=== PATIENT | male | born 1935 | race Caucasian/White ===

== ENCOUNTER 2016-11-30 09:52 | Emergency (ER) | payer OTHER ==
[2016-11-30 10:03] VITALS: TEMP 98.1
--- NOTE | 2016-11-30 10:07 | EDPHY ---
H & P Stated Complaint: Pain R TMJ area after chewing this morning Time Seen by Provider: 11/30/16 10:06 - Personal History Current Tetanus Diphtheria and Acellular Pertussis (TDAP): Yes - Medical/Surgical History Other PMH: osteoporosis. HTN - Social History Smoking Status: Former smoker Constitutional: Initial Vital Signs Temperature (C) 36.7 C 11/30/16 09:58 Heart Rate 54 L 11/30/16 09:58 Respiratory Rate 16 11/30/16 09:58 Blood Pressure 215/123 H 11/30/16 09:58 O2 Sat (%) 97 11/30/16 09:58 O2 Delivery Mode Room Air Allergies/Adverse Reactions: No Known Allergies Allergy (Verified 11/30/16 09:56) Home Medications: Medication Instructions Recorded Lisinopril [Zestril 20 mg (*)] 20 mg PO DAILY 09/06/12 amLODIPine BESYLATE [Norvasc 2.5 2.5 mg PO DAILY 09/06/12 mg (*)] Aspirin [Aspirin 325 mg (*)] 325 mg PO DAILY 11/30/16 Medical Decision Making ED Course/Re-evaluation: CHIEF COMPLAINT: Right TMJ pain HISTORY OF PRESENT ILLNESS: The patient is an 81 y/o male complaining of right TMJ pain onset suddenly while eating this morning. He says he was chewing and felt and heard a sudden snap in his right TMJ this morning. He continues to have soreness at the site that is aggravated by opening his mouth and biting down. His teeth feel like they are lining up normally. No other complaints. REVIEW OF SYSTEMS: A 10 point review of systems was performed and is negative with the exception of the elements mentioned in the history of present illness. PHYSICAL EXAM: HR, BP, O2 Sat, RR. Temp noted General Appearance: Alert, well hydrated, appropriate, and non-toxic appearing. Head: Atraumatic without scalp tenderness or obvious injury Eyes: Pupils equal, round, reactive to light and accommodation, EOMI, no trauma , no injection. Ears: Clear bilaterally, no perforation, normal landmarks Nose: Atraumatic, no rhinorrhea, clear. Throat: There is no erythema or exudates, no lesions, normal tonsils, mucus membranes moist. Neck: Supple, 2+ carotid upstroke, nontender, no lymphadenopathy. Respiratory: No retractions, no distress, no wheezes, and no accessory muscle use. Lungs are clear to auscultation bilaterally. Cardiovascular: Regular rate and rhythm, no murmurs, rubs, or gallops. Bilateral carotid, radial, dorsalis pedis, and posterior tibial pulses intact. Good capillary refill all extremities. Gastrointestinal: Abdomen is soft, nontender, non-distended, no masses, no rebound, no guarding, no peritoneal signs. Musculoskeletal: Normal active ROM of all extremities, atraumatic. Neurological: Alert, appropriate, and interactive. The patient has normal DTRs and non-focal cranial nerves, motor, sensory, and cerebellar exam. Skin: No rashes, good turgor, no nodules on palpation. Past medical history: Hypertension, osteoporosis Past surgical history: noncontributory Family history: noncontributory Social history: lives in [place] DIAGNOSTICS/PROCEDURES/CRITICAL CARE TIME: Study: Maxillofacial CT Indication: acute TMJ pain Results: CT scan of the face was obtained. The results of the study are negative. The study was read by the radiologist, Dr. Jamil. I viewed the images myself on the PACS system. DIFFERENTIAL DIAGNOSIS: The differential diagnosis for the patient's jaw pain included but was not limited to TMJ dislocation, TMJ sprain, jaw fracture, dental pain. MEDICAL DECISION MAKING: This is an 81 y/o male presenting with mild right TMJ pain secondary to chewing this morning. He describes a "snap" as he was chewing with sudden pain that has gradually improved. No other symptoms. Maxillofacial CT was negative. Likely a sprain of the TMJ. Referred to PCP for follow up. He is comfortable with this plan. Departure - Departure Disposition: Home, Routine, Self-Care Clinical Impression: Sprain of right temporomandibular joint Condition: Good Instructions: Mandibular Dislocation (ED) Additional Instructions: 1. Use Tylenol as directed on the packaging if needed for pain. 2. Follow up with your primary care provider for symptoms not improved over the next 2-3 days or for recurrence. 3. Return to the ED for severe pain, inability to eat, or other worsening of condition. Referrals: Gilles Snyder MD [Primary Care Provider] - As per Instructions Report Scribed for: Martínez Saldana Report Scribed by: Ondina Hummel Date of Report: 11/30/16 Time of Report: 10:20
--- NOTE | 2016-11-30 11:01 | CT ---
CT Maxillofacial Bones with Multiplanar and 3D Reconstructions at 1028 hours History: Right jaw pain post eating. [place] crack. Technique: Noncontrast axial computed tomographic images of the facial bones at 1.25 mm slice thickne with multiplanar and 3D reconstructions. Multiplanar reconstructions including 3D reconstructions performed and evaluated on [employer] workstation in order to better evaluate the facial bones for fractu re. Dose reduction techniques were utilized. Findings: Mandible appears intact without evidence of fracture or dislocation. Bilateral mandibular c ondyles and neck regions appear intact without dislocation or fractures. No destructive osseous lesio ns. Left sphenoid sinus demonstrates a 1.2 cm polyp or mucous retention cyst. No fluid levels in the para nasal sinuses. No evidence of zygomatic arch, orbital wall or sinus wall fractures. Nasal septal sheila ation to the right. Mastoid air cells are clear. Impression: 1. No maxillofacial fracture. 2. No evidence of mandibular fracture or dislocation. 3. Mucous retention cyst or polyp in the left sphenoid sinus. Findings and recommendations discussed with Emergency Department physician, Dr. Martínez Saldana at 1050 hours today. Final report concurs with initial preliminary interpretation.
[2016-11-30 11:07] VITALS: BP 175/91; PULSE 61; RESP 18; O2SAT 96
== END 2016-11-30 11:08 | disposition home or self-care (01) ==
DX: S03.41XA Sprain of jaw, right side, initial encounter (principal); I10 Essential (primary) hypertension; Z87.891 Personal history of nicotine dependence; X58.XXXA Exposure to other specified factors, initial encounter

== ENCOUNTER 2016-12-04 00:05 | Emergency (ER) | payer OTHER ==
[2016-12-04 00:33] VITALS: RESP 16; TEMP 98.2
[2016-12-04 00:35] LABS: % IMMATURE GRANULYOCYTES 0.4 % (0.0-1.1); ABSOLUTE IMMATURE GRANULOCYTES 0.07 10^3/uL (0.00-0.10); ADD DIFF? NO; ADD MORPH? NO; ADD SCAN? NO; ATYPICAL LYMPHOCYTE FLAG 0 (0-99); FRAGMENT RBC FLAG 0 (0-99); HEMATOCRIT 45.2 % (40.0-51.0); HEMOGLOBIN 16.3 g/dL (13.7-17.5); LEFT SHIFT FLG 0 (0-99); LIPEMIA HEMOLYSIS FLAG 90 (0-99); MEAN CELL HEMOGLOBIN 35.5 pg (27.9-34.1); MEAN CELL HEMOGLOBIN CONCENTR. 36.1 g/dL (32.4-36.7); MEAN CELL VOLUME 98.5 fL (81.5-99.8); MEAN PLATELET VOLUME 9.6 fL (8.7-11.7); PLATELET CLUMPS FLAG 20 (0-99); PLATELET COUNT 269 10^3/uL (150-400); RED BLOOD CELL COUNT 4.59 10^6/uL (4.40-6.38); RED CELL DISTRIBUTION WIDTH 12.1 % (11.5-15.2)
[2016-12-04 00:46] LABS: ANION GAP 17 mEq/L (8-16); CALCIUM 9.9 mg/dL (8.5-10.4); CARBON DIOXIDE 21 mEq/l (22-31); CHLORIDE 95 mEq/L (97-110); GLOMERULAR FILTRATION RATE > 60; GLUCOSE 111 mg/dL (70-100); POTASSIUM 4.3 mEq/L (3.5-5.2); SODIUM 133 mEq/L (134-144)
[2016-12-04] MEDS ORDERED: NS 1,000 ML IV ONE (01:00)
[2016-12-04 01:01] LABS: AMORPHOUS PRESENT /hpf (NONE-1+); MUCUS TRACE /lpf (NONE-1+)
[2016-12-04 01:19] LABS: COLOR YELLOW; LEUKOCYTE ESTERASE,URINE NEGATIVE (NEGATIVE); NITRITE,URINE NEGATIVE (NEGATIVE)
--- NOTE | 2016-12-04 01:53 | CPEKG ---
Heart Rate: 60 RR Interval: 1000 P-R Interval: 180 QRSD Interval: 92 QT Interval: 420 QTC Interval: 420 P [place]: -79 QRS [place]: 8 T Wave [place]: 63 EKG Severity - ABNORMAL ECG - EKG Impression: ECTOPIC ATRIAL RHYTHM Electronically Signed By: Dionna De Dios 05-Dec-2016 08:18:49
--- NOTE | 2016-12-04 02:33 | EDPHY ---
[id number] 12/04/16 00:46 HPI/ROS: HPI The patient presents with weakness which began this evening when walking up the stairs to bed. He felt very tired doing this. He went back downstairs and rested awhile and then felt well enough to go up the stairs. He went to the bathroom to try to urinate and felt very dizzy and had to lay on the ground. His found him this way and brought him in for evaluation. The patient says that he generally feels fatigued and tired. It reminds him of when he had an episode of hyponatremia. He went on a 3 mi hike today and felt tired but could completed without much difficulty. About a month ago he had some changes in his blood pressure medications. He otherwise feels well and denies any fever, cough, rhinorrhea or sore throat. He does not have any chest pain, shortness of breath, diaphoresis.. REVIEW OF SYSTEMS Constitutional: No fever, no chills. Eyes: No discharge. ENT: No sore throat. Cardiovascular: No chest pain, no palpitations. Respiratory: No cough, no shortness of breath. Gastrointestinal: No abdominal pain, no vomiting. Genitourinary: No hematuria. Musculoskeletal: No back pain. Skin: No rashes. Neurological: No headache. PMHx: Hypertension, osteoporosis, recent ER visit for TMJ pain. Soc Hx: Lives at home with his PHYSICAL General Appearance: Alert, no distress Eyes: Pupils equal and round no pallor or injection ENT, Mouth: Mucous membranes moist Respiratory: There are no retractions, lungs are clear to auscultation Cardiovascular: Regular rate and rhythm Gastrointestinal: Abdomen is soft and non-tender, no masses, bowel sounds normal Neurological: A&O, moves all extremities Skin: Warm and dry, no rashes Musculoskeletal: Neck is supple non tender Extremities: symmetrical, full range of motion Psychiatric: Patient is oriented X 3, there is no agitation Source: Patient Exam Limitations: No limitations - Personal History Current Tetanus/Diphtheria Vaccine: Yes Current Tetanus Diphtheria and Acellular Pertussis (TDAP): Yes - Medical/Surgical History Hx Asthma: No Hx Chronic Respiratory Disease: No Hx Diabetes: No Hx Cardiac Disease: No Hx Renal Disease: No Hx Cirrhosis: No Hx Alcoholism: No Hx HIV/AIDS: No Hx Splenectomy or Spleen Trauma: No Other PMH: osteoporosis, HTN, macular degeneration - Social History Smoking Status: Former smoker Constitutional: Initial Vital Signs Temperature (C) 36.8 C 12/04/16 00:31 Heart Rate 95 12/04/16 00:31 Respiratory Rate 16 12/04/16 00:31 Blood Pressure 143/78 H 12/04/16 00:31 O2 Sat (%) 90 L 12/04/16 00:31 O2 Delivery Mode Room Air Allergies/Adverse Reactions: No Known Allergies Allergy (Verified 11/30/16 09:56) Home Medications: Medication Instructions Recorded Lisinopril [Zestril 20 mg (*)] 20 mg PO DAILY 09/06/12 amLODIPine BESYLATE [Norvasc 2.5 2.5 mg PO DAILY 09/06/12 mg (*)] Aspirin [Aspirin 325 mg (*)] 325 mg PO DAILY 11/30/16 Medical Decision Making - Diagnostics EKG Interpretation: EKG: Complete interpretation has been separately recorded in the [employer] archive. Summary impression: Normal sinus rhythm, Q-waves in lead 3 Imaging: Chest x-ray two views interpreted by me shows no infiltrate, radiology interpretation is pending. Differential Diagnosis: This is an 81-year-old male with history of hypertension who presents from home with an episode of global weakness and fatigue which began tonight. On exam, he is well-appearing with normal vital signs. Differential diagnosis includes dehydration, electrolyte disturbance, anemia, infection, less likely CVA given nonfocal neuro exam. In the emergency room the patient was given a L of IV fluids. Basic labs were checked and revealed an elevated white blood cell count. Because of this, chest x-ray and urinalysis were ordered and were both normal. His electrolytes were normal with no hyponatremia. Chest x-ray showed no sign of infection. After the IV fluid, the patient felt much better and was able to walk several laps around the emergency room without any further weakness. I offered him admission to the hospital given his leukocytosis and some diagnostic uncertainty, however he would like to go home. I explained that he may have an underlying infection that may get worse in the next few days. He says he will be able to return if he is feeling worse. He will be discharged with his . - Data Points Laboratory Results: Laboratory Results 12/04/16 00:15 12/04/16 00:15 12/04/16 00:15 WBC 16.47 H 10^3/uL (3.80-9.50) RBC 4.59 10^6/uL (4.40-6.38) Hgb 16.3 g/dL (13.7-17.5) Hct 45.2 % (40.0-51.0) MCV 98.5 fL (81.5-99.8) MCH 35.5 H pg (27.9-34.1) MCHC 36.1 g/dL (32.4-36.7) RDW 12.1 % (11.5-15.2) Plt Count 269 10^3/uL (150-400) MPV 9.6 fL (8.7-11.7) Neut % (Auto) 79.9 H % (39.3-74.2) Lymph % (Auto) 15.4 % (15.0-45.0) Mcdonough % (Auto) 3.6 L % (4.5-13.0) Eos % (Auto) 0.5 L % (0.6-7.6) Baso % (Auto) 0.2 L % (0.3-1.7) Nucleat RBC Rel Count 0.0 % (0.0-0.2) Absolute Neuts (auto) 13.15 H 10^3/uL (1.70-6.50) Absolute Lymphs (auto) 2.54 10^3/uL (1.00-3.00) Absolute Monos (auto) 0.59 10^3/uL (0.30-0.80) Absolute Eos (auto) 0.09 10^3/uL (0.03-0.40) Absolute Basos (auto) 0.03 10^3/uL (0.02-0.10) Absolute Nucleated RBC 0.00 10^3/uL (0-0.01) Immature Gran % 0.4 % (0.0-1.1) Immature Gran # 0.07 10^3/uL (0.00-0.10) Sodium 133 L mEq/L (134-144) Potassium 4.3 mEq/L (3.5-5.2) Chloride 95 L mEq/L (97-110) Carbon Dioxide 21 L mEq/l (22-31) Anion Gap 17 H mEq/L (8-16) BUN 23 mg/dL (7-23) Creatinine 1.0 mg/dL (0.7-1.3) Estimated GFR > 60 Glucose 111 H mg/dL (70-100) Calcium 9.9 mg/dL (8.5-10.4) Troponin I < 0.012 ng/mL (0-0.034) Urine Color YELLOW Urine Appearance HAZY Urine pH 7.0 (5.0-7.5) Ur Specific [place] 1.016 (1.002-1.030) Urine Protein NEGATIVE (NEGATIVE) Urine Ketones TRACE H (NEGATIVE) Urine Blood NEGATIVE (NEGATIVE) Urine Nitrate NEGATIVE (NEGATIVE) Urine Bilirubin NEGATIVE (NEGATIVE) Urine Urobilinogen NEGATIVE EU (0.2-1.0) Ur Leukocyte Esterase NEGATIVE (NEGATIVE) Urine RBC 3-5 H /hpf (0-3) Urine WBC 1-3 /hpf (0-3) Ur Epithelial Cells TRACE /lpf (NONE-1+) Amorphous Sediment PRESENT /hpf (NONE-1+) Hyaline Casts 5-15 /lpf (0-1) Urine Mucus TRACE /lpf (NONE-1+) Ur Culture Indicated? NOT INDICATED (NI) Urine Glucose NEGATIVE (NEGATIVE) Medications Given: Discontinued Medications Sodium Chloride (Ns) 1,000 mls @ 0 mls/hr IV ONCE ONE PRN Reason: Wide Open Stop: 12/04/16 01:01 Last Admin: 12/04/16 01:03 Dose: 1,000 mls Departure - Departure Disposition: Home, Routine, Self-Care Clinical Impression: Weakness, Leukocytosis Condition: Good Instructions: Leukocytosis (ED) Additional Instructions: It is not exactly clear what is causing your weakness today. It could be due to some dehydration. Because of this please drink plenty of fluids. We did also find that your white blood cell count was elevated and this could be due to an infection. Because of this, please monitor your symptoms at home and return to the emergency room if you develop a fever, cough, pain, vomiting or worse in any way. Referrals: Gilles Snyder MD [Primary Care Provider] - As per Instructions
[2016-12-04 02:52] VITALS: BP 103/69; PULSE 60; O2SAT 92
--- NOTE | 2016-12-04 09:58 | DX ---
PA and Lateral Chest December 04, 2016 Indication: Generalized weakness. Comparison: CT angiogram of the neck dated September 06, 2012, portable chest dated May 10, 2008, and two-view chest dated April 26, 2007. Findings: The hyperinflated lungs have diffuse peribronchial thickening and subpleural reticular abno rmality in the lower lung zones. No superimposed edema, airspace consolidation, or effusion. The hear t size is upper normal. Old mild compression fractures in the upper thoracic spine are unchanged sinc e August 2012. Impression: 1. 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 2. No acute process. 3. Old mild compression deformities.
== END 2016-12-04 02:52 | disposition home or self-care (01) ==
LOC: EDBD → EDUNIT#
DX: R53.1 Weakness (principal); D72.829 Elevated white blood cell count, unspecified; I10 Essential (primary) hypertension; Z87.891 Personal history of nicotine dependence; Z79.82 Long term (current) use of aspirin

== ENCOUNTER → 2017-04-14 | Outpatient (CLI) | payer OTHER | LOC: BHFA 09:00 | PROVIDERS: ATTEND Internal Medicine Cardiovascular Disease | DX: R06.02 Shortness of breath (principal) ==

== ENCOUNTER → 2017-05-04 | Outpatient (CLI) | payer OTHER | LOC: FIMAGING 15:00 | PROVIDERS: ATTEND Internal Medicine Endocrinology, Diabetes & Metabolism | DX: Z13.820 Encounter for screening for osteoporosis (principal); M85.80 Other specified disorders of bone density and structure, unspecified site; Z87.310 Personal history of (healed) osteoporosis fracture ==

== ENCOUNTER 2017-12-02 10:21 | Day surgery (SDC) | payer OTHER ==
--- NOTE | 2017-12-01 17:03 | GHP ---
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 HISTORY OF PRESENT ILLNESS: This is an 82-year-old gentleman, who has had difficulty voiding and nocturia 4-5 times per night. He has been assessed and evaluated in the office. On cystoscopy, it is noted that he has significant bladder outlet obstruction with +4 trabeculation of the bladder, and at the present time, he is admitted for GreenLight laser photo vaporization of the prostate, possible TURP. PAST MEDICAL HISTORY: He has had osteoporosis in the past medically. PAST SURGICAL HISTORY: Hip surgery. MEDICATIONS: Include aspirin, lisinopril. ALLERGIES: No known drug allergies. PAST FAMILY HISTORY: Positive for heart disease, hypertension. SOCIAL HISTORY: He drinks some alcohol. He is a nonsmoker. REVIEW OF SYSTEMS: Negative cardiac, respiratory, GI, and endocrine. He does have occasional dysuria, nocturia. PHYSICAL EXAMINATION: VITAL SIGNS: Stable. CHEST: Clear. HEART: Regular rate and rhythm. ABDOMEN: Normal. No organomegaly, rebound, or guarding. LOWER EXTREMITIES: Normal. PLAN: He is admitted for GreenLight photo vaporization. /[id number]/MODL MTDD
[~2017-12-02 10:21] MED LIST: ceFAZolin 2 GM/SWFI 2 GM/20 ML SYR IVP ONE
[2017-12-02] MEDS ORDERED: LIDOCAINE 1% 2 ML INJ ID PRN (10:43)
[2017-12-02] MEDS ORDERED: LR 1,000 ML IV ONE (10:43)
--- NOTE | 2017-12-02 11:05 | PDANEPAE ---
ANE History of Present Illness prostatic hypertrophy ANE Past Medical History - Cardiovascular History Hx Hypertension: Yes Hx Arrhythmias: No Hx Chest Pain: No Hx Coronary Artery / Peripheral Vascular Disease: Yes Hx CHF / Valvular Disease: No Hx Palpitations: No Cardiovascular History Comment: htn. known aortic insuff. mitral regurg. seen at [facility] - Pulmonary History Hx COPD: No Hx Asthma/Reactive Airway Disease: No Hx Recent Upper Respiratory Infection: No Hx Oxygen in Use at Home: No Hx Sleep Apnea: No Sleep Apnea Screening Result - Last Documented: Positive Pulmonary History Comment: joon triggers - Neurologic History Hx Cerebrovascular Accident: Yes Hx Seizures: No Hx Dementia: No Neurologic History Comment: TIA 2011- no residuals on aspirin daily - Endocrine History Hx Diabetes: No Obesity: no - Renal History Hx Renal Disorders: Yes Renal History Comment: bph - Liver History Hx Hepatic Disorders: No - Neurological & Psychiatric Hx Hx Neurological and Psychiatric Disorders: No - Cancer History Hx Cancer: No - Congenital Disorder History Hx Congenital Disorders: No - GI History GERD: no Hx Gastrointestinal Disorders: No - Other Health History Other Health History: wears reading glasses - Chronic Pain History Chronic Pain: No - Surgical History Prior Surgeries: partial hip replacement- right. tonsillectomy as child ANE Review of Systems Review of Systems: - Exercise capacity METS (RN): 4 METS ANE Patient History - Allergies Allergies/Adverse Reactions: No Known Allergies Allergy (Verified 11/24/17 16:00) - Home Medications Home medications: home medication list seen and reviewed Home Medications: Lisinopril [Zestril 20 mg (*)] 09/06/12 [Last Taken 09/12/12] Aspirin 325 mg (*) 11/24/17 [Last Taken Unknown] Herbals/Supplements -Info Only 11/24/17 [Last Taken Unknown] - Anes Hx Anes Hx: no prior problems - Smoking Hx Smoking Status: Former smoker - Family Anes Hx Family Hx Anesthesia Complications: none ANE Labs/Vital Signs - Vital Signs Height: 167.64 cm Weight: 70.307 kg ANE Physical Exam - Airway Neck exam: FROM Mallampati Score: Class 1 Mouth exam: normal dental/mouth exam - Pulmonary Pulmonary: no respiratory distress - Cardiovascular Cardiovascular: regular rate and rhythym - ASA Status ASA Status: III ANE Anesthesia Plan Anesthesia Plan: general endotracheal anesthesia
[2017-12-02] MEDS ORDERED: PROPOFOL 200 MG/20 ML VIAL ONE (11:26)
[2017-12-02] MEDS ORDERED: LIDOCAINE 2% 5 ML SDV ONE (11:26)
[2017-12-02] MEDS ORDERED: fentaNYL 100 MCG/2 ML INJ ONE ×2 (11:26→12:22)
[2017-12-02] MEDS ORDERED: DEXAMETHASONE 4 MG/ML VIAL ONE (11:28)
[2017-12-02] MEDS ORDERED: ONDANSETRON 4 MG/2 ML VIAL ONE (11:28)
[2017-12-02] MEDS ORDERED: ROCURONIUM 50 MG/5 ML VIAL ONE (11:28)
[2017-12-02] MEDS ORDERED: SUGAMMADEX SODIUM 200 MG/2 ML VIAL IVP ONE (11:28)
[2017-12-02] MEDS ORDERED: LIDOCAINE 2% JELLY 20 ML (UROJECT) ONE (11:29)
[2017-12-02] MEDS ORDERED: ceFAZolin 2 GM/SWFI 20 ML SYR IVP ONE (11:36)
--- NOTE | 2017-12-02 13:18 | POSTANESTH ---
Post Anesthetic Evaluation Cardiovascular Status: Normal, Stable Respiratory Status: Normal, Stable Level of Consciousness/Mental Status: Can Participate in Eval Pain Control: Adequate, Prn Tx Ordered Nausea/Vomiting Control: Adequate, Prn Tx Ordered Complications Possibly Related to Anesthesia: None Noted
[2017-12-02] MEDS ORDERED: OXYCODONE/APAP 5/325 TAB PO PRN (13:20)
[2017-12-02] MEDS ORDERED: fentaNYL 100 MCG/2 ML INJ IVP PRN (13:20)
[2017-12-02] MEDS ORDERED: PROMETHAZINE HCL 25 MG/ML INJ IVP PRN (13:20)
[2017-12-02] MEDS ORDERED: ALBUTEROL 3 ML DEYVIAL IH PRN (13:20)
[2017-12-02] MEDS ORDERED: LR 500 ML IV PRN (13:20)
[2017-12-02] MEDS ORDERED: NALOXONE HCL 0.4 MG/ML INJ IVP PRN (13:20)
[2017-12-02] MEDS ORDERED: ACETAMINOPHEN 500 MG TAB PO PRN (13:20)
[2017-12-02] MEDS ORDERED: ONDANSETRON 4 MG/2 ML VIAL IVP PRN (13:20)
[2017-12-02] MEDS ORDERED: METOCLOPRAMIDE 10 MG/2 ML VIAL IVP PRN (13:20)
[2017-12-02] MEDS ORDERED: HYDROCODONE/APAP 5/325 TAB PO PRN (13:20)
[2017-12-02] MEDS ORDERED: HYDROmorphONE/DILAUDID 1 MG/ML INJ IVP PRN (13:20)
[2017-12-02] MEDS ORDERED: LABETALOL HCL 5 MG/ML 20 ML MDV IVP PRN (13:20)
--- NOTE | 2017-12-02 13:27 | POSTOPPROG ---
Post Op Note Date of Operation: 12/02/17 Surgeon: Daniel Llanes Anesthesia: GET(General Endotracheal) Pre-op Diagnosis: bph Procedure: pvp Inf/Abcess present in the surg proc area at time of surgery?: No EBL: Minimal Drains: Other (tovar) Specimen(s): dictated
--- NOTE | 2017-12-02 13:27 | GOP ---
[f rep st] OPERATIVE REPORT DATE OF OPERATION: 12/02/2017 SURGEON: Daniel Llanes MD PREOPERATIVE DIAGNOSIS: Benign prostatic hypertrophy with obstruction. POSTOPERATIVE DIAGNOSIS: Benign prostatic hypertrophy with obstruction. PROCEDURE PERFORMED: GreenLight photovaporization of the prostate. FINDINGS: DESCRIPTION OF PROCEDURE: He underwent general anesthesia and being prepped and draped in normal shelly rile fashion, meatus was dilated to a 24-Bahamian. Then I was able to pass the resectoscope sheath int o the bladder under direct vision to the prostate. He had an elevated bladder neck and somewhat of a fibrous gland. At that point, bladder had no tumor, stones, or foreign bodies. It did have +3 to 4 trabeculation. The ureteral orifice was in normal position with clear efflux. With the XPS fiber set originally at 80 lawrence at 35 pulses per second, time 2 minutes, did laserotomy of the prostate at the 7 o'clock position and the 5 o'clock position. Then, at that point, the intr avesical lobe was vaporized, and then I increased the power setting to 120 lawrence and, for 15 minutes vaporized. The right lateral lobe and right portion of the posterior lobe, left lateral lobe and lef t portion of the posterior lobe were vaporized. At the end of the procedure, there was no bleeding, verumontanum preserved, bladder had no trauma, and had used a total of 108,625 joules. Filled his bl adder and removed it with a Crede maneuver. He had a good flow of urine. At that point, Uro-jet was placed in his urethra, Harvey catheter placed and a 20 mL balloon inflated. He irrigated clear. He will be discharged home to have followup probably Wednesday to remove the cath eter and do a voiding trial. Tolerated procedure well. No complications encountered. No specimen. /[id number]/MODL
[2017-12-02 13:35] VITALS: TEMP 97.5
[2017-12-02 14:05] VITALS: BP 163/87; PULSE 56; RESP 17; O2SAT 91
[2017-12-03] MEDS ORDERED: LISINOPRIL 20 MG TAB PO SCH (09:00)
[2017-12-03] MEDS ORDERED: ASPIRIN PO SCH (09:00)
== END 2017-12-02 15:27 | disposition home or self-care (01) ==
LOC: FSGY 10:21
PROVIDERS: ATTEND Specialist
PROC: 0V508ZZ Destruction of Prostate, Via Natural or Artificial Opening Endoscopic (ICD-10-PCS; principal; 2017-12-02 11:45)
DX: N40.1 Benign prostatic hyperplasia with lower urinary tract symptoms (principal); D29.1 Benign neoplasm of prostate; I10 Essential (primary) hypertension
CPT/HCPCS: J0690; J1100; J2405; J2704; J3010

== ENCOUNTER 2017-12-06 18:54 | Observation (INO) | payer OTHER ==
[2017-12-06] MEDS ORDERED: NS 1,000 ML IV ONE (19:10)
--- NOTE | 2017-12-06 19:14 | EDPHY ---
H & P Time Seen by Provider: 12/06/17 18:59 HPI/ROS: CHIEF COMPLAINT: TIA HISTORY OF PRESENT ILLNESS: The patient is a 82-year-old man who was at home with his this evening when he came into the room and told his he felt "funny ". He cannot elaborate on this. She states that he then seemed to clench both of his hands and stare into space. She was able to get his attention in he would talk to her while he was doing this but then he would stare into space again. He states that he saw some funny sparkly spots in both eyes. His also noticed that he seemed to have slurred speech that reminded her of when he had a TIA several years ago. The symptoms resolved after about 10 sec. EMS was called brought him into the ER. He had another episode for them and they thought it was a seizure. He was not postictal. Patient denies headache. He denies chest pain. He states that he is currently asymptomatic. He does have a slightly crooked smile which is states is baseline from his previous TIA. REVIEW OF SYSTEMS: Constitutional: denies: chills, fever, recent illness, recent injury EENTM: denies: blurred vision, double vision, nose congestion Respiratory: denies: cough, shortness of breath Cardiac: denies: chest pain, irregular heart rate, lightheadedness, palpitations Gastrointestinal/Abdominal: denies: abdominal pain, diarrhea, nausea, vomiting, blood streaked stools Genitourinary: denies: dysuria, frequency, hematuria, pain Musculoskeletal: denies: joint pain, muscle pain Skin: denies: lesions, rash, jaundice, bruising Neurological: See HPI denies: headache, numbness, paresthesia, tingling, dizziness, weakness Hematologic/Lymphatic: denies: blood clots, easy bleeding, easy bruising Immunologic/allergic: denies: HIV/AIDS, transplant EXAM: GENERAL: Well-appearing, well-nourished and in no acute distress. HEAD: Atraumatic, normocephalic. EYES: Pupils equal round and reactive to light, extraocular movements intact, sclera anicteric, conjunctiva are normal. ENT: TMs normal, nares patent, oropharynx clear without exudates. Moist mucous membranes. NECK: Normal range of motion, supple without lymphadenopathy or JVD. LUNGS: Breath sounds clear to auscultation bilaterally and equal. No wheezes rales or rhonchi. HEART: Regular rate and rhythm without murmurs, rubs or gallops. ABDOMEN: Soft, nontender, normoactive bowel sounds. No guarding, no rebound. No masses appreciated. BACK: No CVA tenderness, no spinal tenderness, step-offs or deformities EXTREMITIES: Normal range of motion, no pitting or edema. No clubbing or cyanosis. NEUROLOGICAL: Cranial nerves II through XII grossly intact. Slight decreased smile to left, Normal speech, normal gait. 5/5 strength, normal movement in all extremities, normal cerebellar exam, normal sensation NIH score 1 but according to his baseline. PSYCH: Normal mood, normal affect. SKIN: Warm, dry, normal turgor, no visible rashes or lesions. Source: Patient Exam Limitations: No limitations - Medical/Surgical History Hx Asthma: No Hx Chronic Respiratory Disease: No Hx Diabetes: No Hx Cardiac Disease: No Hx Renal Disease: No Hx Cirrhosis: No Hx Alcoholism: No Hx HIV/AIDS: No Hx Splenectomy or Spleen Trauma: No Other PMH: TIA, residual left-sided droop, osteoporosis, HTN, macular degeneration - Family History Significant Family History: No pertinent family hx - Social History Smoking Status: Former smoker Alcohol Use: Sober Constitutional: Initial Vital Signs Heart Rate 64 12/06/17 20:14 Respiratory Rate 12 12/06/17 20:14 Blood Pressure 155/89 H 12/06/17 20:14 O2 Sat (%) 96 12/06/17 20:14 O2 Delivery Mode Nasal Cannula O2 (L/minute) 2 Allergies/Adverse Reactions: No Known Allergies Allergy (Verified 12/06/17 20:17) Home Medications: Medication Instructions Recorded Lisinopril [Zestril 20 mg (*)] 09/06/12 Aspirin 325 mg (*) 11/24/17 Herbals/Supplements -Info Only 11/24/17 Medical Decision Making - Diagnostics Imaging Results: Imaging Impressions Head CT 12/06/17 19:10 Impression: 1. No acute abnormalities. 2. Severe chronic supratentorial microvascular ischemic changes, progressed since 2011. 3. Moderate generalized cerebral atrophy, also progressed. Dr. Frazier discussed these findings by telephone with JOHNATHON AMIN on 2017 at 19:36 hours. Head CTA 12/06/17 19:10 Impression: CT head: 1. No enhancing abnormalities. 2. Severe chronic supratentorial microvascular ischemic changes, better seen on noncontrast CT head, and moderate generalized atrophy. CTAs: 1. Approximately 50% stenosis of the left vertebral artery at the level of C4- C5 secondary to severe facet hypertrophy. This is likely slightly increased since prior exam. 2. Extensive atherosclerosis of the carotid bulbs bilaterally, similar to prior exam and without significant stenoses. 3. Advanced multilevel degenerative changes of the spine, as above. Dr. Frazier discussed these findings by telephone with JOHNATHON AMIN on 2017 at 19:40 hours. Neck CTA 12/06/17 19:10 Impression: CT head: 1. No enhancing abnormalities. 2. Severe chronic supratentorial microvascular ischemic changes, better seen on noncontrast CT head, and moderate generalized atrophy. CTAs: 1. Approximately 50% stenosis of the left vertebral artery at the level of C4- C5 secondary to severe facet hypertrophy. This is likely slightly increased since prior exam. 2. Extensive atherosclerosis of the carotid bulbs bilaterally, similar to prior exam and without significant stenoses. 3. Advanced multilevel degenerative changes of the spine, as above. Dr. Frazier discussed these findings by telephone with JOHNATHON AMIN on 2017 at 19:40 hours. Imaging: Discussed imaging studies w/ call center analyst Radiologist ED Course/Re-evaluation: 7:20 p.m. the patient's called me to the room stating that the patient was sweating. When I entered the room I found the patient staring into space, he will answer questions but they are incorrect. When asked what day it was, he would respond [birth year] which is his birthday. He will follow commands and squeeze hands. He has some difficulty with speech and was smiling. He is able to lift both arms and both legs in the air without difficulty to command. He is able to track my finger with his eyes. I called a stroke alert and the patient was taken to CT. I-STAT pending, [facility] has been paged. 7:30 p.m. I discussed the case with Dr. Smith from [facility] who states the patient's symptoms do seem consistent with a seizure. He will evaluate. 7:55 p.m. patient's symptoms have again resolved. He has been evaluated by Neurology. They feel that he is likely having seizures. His CT and CT angiograms are negative. [facility] recommends Ativan and Keppra and admission for MRI tomorrow. Patient's family tells us now that he has had seizures in the past from hyponatremia. Currently his sodium is 133. He is receiving normal saline. 8:20 p.m. I discussed the case with Dr. Doran who will admit the medical service. Differential Diagnosis: Partial list of the Differential diagnosis considered include but were not limited to; electrolyte abnormality, seizure, TIA, CVA and although unlikely based on the history and physical exam, I also considered hemorrhage, infection , acute coronary disease, arrhythmia. - Data Points Laboratory Results: Laboratory Results 12/06/17 19:22 12/06/17 19:22 12/06/17 12/06/17 12/06/17 19:22 19:22 19:22 WBC 10.03 10^3/uL H 10^3/uL (3.80-9.50) RBC 4.59 10^6/uL 10^6/uL (4.40-6.38) Hgb 15.5 g/dL g/dL (13.7-17.5) POC Hgb Hct 43.1 % % (40.0-51.0) POC Hct MCV 93.9 fL fL (81.5-99.8) MCH 33.8 pg pg (27.9-34.1) MCHC 36.0 g/dL g/dL (32.4-36.7) RDW 12.4 % % (11.5-15.2) Plt Count 315 10^3/uL 10^3/uL (150-400) MPV 9.6 fL fL (8.7-11.7) Neut % (Auto) 63.4 % % (39.3-74.2) Lymph % (Auto) 24.2 % % (15.0-45.0) Mcclain % (Auto) 10.5 % % (4.5-13.0) Eos % (Auto) 1.3 % % (0.6-7.6) Baso % (Auto) 0.3 % % (0.3-1.7) Nucleat RBC Rel Count 0.0 % % (0.0-0.2) Absolute Neuts (auto) 6.36 10^3/uL 10^3/uL (1.70-6.50) Absolute Lymphs (auto) 2.43 10^3/uL 10^3/uL (1.00-3.00) Absolute Monos (auto) 1.05 10^3/uL H 10^3/uL (0.30-0.80) Absolute Eos (auto) 0.13 10^3/uL 10^3/uL (0.03-0.40) Absolute Basos (auto) 0.03 10^3/uL 10^3/uL (0.02-0.10) Absolute Nucleated RBC 0.00 10^3/uL 10^3/uL (0-0.01) Immature Gran % 0.3 % % (0.0-1.1) Immature Gran # 0.03 10^3/uL 10^3/uL (0.00-0.10) PT 13.8 SEC SEC (12.0-15.0) INR 1.04 (0.83-1.16) POC Sodium Sodium 129 mEq/L L mEq/L (135-145) POC Potassium Potassium 4.0 mEq/L mEq/L (3.5-5.2) POC Chloride Chloride 94 mEq/L L mEq/L (97-110) Carbon Dioxide 19 mEq/l L mEq/l (22-31) Anion Gap 16 mEq/L mEq/L (8-16) POC BUN BUN 13 mg/dL mg/dL (7-23) Creatinine 0.8 mg/dL mg/dL (0.7-1.3) POC Creatinine Estimated GFR > 60 Glucose 106 mg/dL H mg/dL (70-100) POC Glucose Calcium 9.6 mg/dL mg/dL (8.5-10.4) Troponin I < 0.012 ng/mL ng/mL (0.000-0.034) 12/06/17 19:17 WBC RBC Hgb POC Hgb 17.0 gm/dL gm/dL (13.7-17.5) Hct POC Hct 50 % % (40-51) MCV MCH MCHC RDW Plt Count MPV Neut % (Auto) Lymph % (Auto) Mcclain % (Auto) Eos % (Auto) Baso % (Auto) Nucleat RBC Rel Count Absolute Neuts (auto) Absolute Lymphs (auto) Absolute Monos (auto) Absolute Eos (auto) Absolute Basos (auto) Absolute Nucleated RBC Immature Gran % Immature Gran # PT INR POC Sodium 133 mEq/L L mEq/L (135-145) Sodium POC Potassium 3.5 mEq/L mEq/L (3.3-5.0) Potassium POC Chloride 94 mEq/L L mEq/L (97-110) Chloride Carbon Dioxide Anion Gap POC BUN 13 mg/dL mg/dL (7-23) BUN Creatinine POC Creatinine 0.9 mg/dL mg/dL (0.7-1.3) Estimated GFR Glucose POC Glucose 114 mg/dL H mg/dL (70-100) Calcium Troponin I Medications Given: Discontinued Medications Sodium Chloride (Ns) 1,000 mls @ 0 mls/hr IV ONCE ONE; Wide Open PRN Reason: Protocol Stop: 12/06/17 19:11 Last Admin: 12/06/17 19:55 Dose: 1,000 mls Levetiracetam (Keppra (Premix)) 100 mls @ 400 mls/hr IV EDNOW ONE Stop: 12/06/17 20:06 Last Admin: 12/06/17 20:12 Dose: 100 mls Lorazepam (Ativan Injection) 1 mg IVP EDNOW ONE Stop: 12/06/17 19:53 Last Admin: 12/06/17 19:56 Dose: 1 mg Point of Care Test Results: 12/06/17 19:17 POC Sodium 133 L POC Potassium 3.5 POC Chloride 94 L POC BUN 13 POC Creatinine 0.9 POC Glucose 114 H Departure - Departure Disposition: [facility] Acute Clinical Impression: Seizure disorder Condition: Fair
[2017-12-06] MEDS ORDERED: IOPAMIDOL (ISOVUE 370) 100 ML BTL IV ONE (19:31)
[2017-12-06 19:43] LABS: PLATELET COUNT 315 10^3/uL (150-400)
[2017-12-06] MEDS ORDERED: LORazepam 2 MG/ML INJ ONE (19:52)
[2017-12-06] MEDS ORDERED: LORazepam 2 MG/ML INJ IVP ONE (19:52)
[2017-12-06] MEDS ORDERED: levETIRAcetam 500MG/NACL 100 ML IV ONE (19:52)
[2017-12-06 20:20] LABS: INR 1.04 (0.83-1.16); PROTIME(PATIENT) 13.8 SEC (12.0-15.0)
[2017-12-06] MEDS ORDERED: ACETAMINOPHEN 325 MG TAB PO PRN (22:48)
[2017-12-06] MEDS ORDERED: ONDANSETRON 4 MG/2 ML VIAL IVP PRN (22:48)
[2017-12-06] MEDS ORDERED: LORazepam 2 MG/ML INJ IVP PRN (22:48)
[2017-12-06] MEDS: NS 1,000 ML IV SCH (23:11)
--- NOTE | 2017-12-07 03:01 | GHP ---
[f rep st] HISTORY AND PHYSICAL DATE OF ADMISSION: 12/06/2017 SOURCE: Patient provides history, appears reliable. His EMR was also reviewed as well as discussion with accepting provider. CHIEF COMPLAINT: Staring spell. HISTORY OF PRESENT ILLNESS: This is a very pleasant 82-year-old gentleman with past medical history significant for hypertension, TIA with residual left facial drooping, history of seizures related to hyponatremia, who presents to the emergency department today after patient had 2 episodes of staring spells where he was also clenching his hands. Patient without any postictal status. reports th at she was at home and noted that patient had some slurred speech. Patient does have a history of TI A. EMS was called, and patient subsequently had another episode of this. They felt the patient's pr esentation was consistent with seizure activity. Again, patient was without any postictal state. He was arrived to the emergency department without any further episodes. Patient is recently status po st GreenLight laser therapy for prostate. He also had his Harvey catheter removed yesterday at his [facility] appointment. Patient reports that he has continued to have some hematuria and dysuria, but no fevers, chills. Patient denies any headache. No changes in vision. No numbness or tingling. No f ocal deficits. Patient does note he is a little unsteady on his feet. Patient does note that since his surgery, patient has substantially increase his water intake, but he is not able to quantify it for me, but he does note that it is a significant amount. Patient is abl e to tell me that he did have a remote history of seizure activity due to hyponatremia approximately 10 or more years ago. Patient is unable to state whether his symptoms were similar, but he does not believe they were. REVIEW OF SYSTEMS: GENERAL: No fevers, chills, or sweats. SKIN: No rash or sores. ENT: Patient denies any nasal congestion, sore throat. EYES: Patient does wear glasses. He denies any ocular ch anges. CV: No chest pain or palpitations. RESPIRATORY: Patient does report that he has had this c hronic cough. He also reports he has had some episodes of hypoxia, but does not wear any oxygen at h ome. Patient reports that these hypoxia episodes are documented on his home pulse ox. GI: Patient denies any nausea, vomiting, abdominal pain, diarrhea. : Patient does report some dysuria as well as hematuria since his Harvey catheter was removed at the urology office. Patient does note that the bloody urine is decreasing substantially with every void. MUSCULOSKELETAL: Patient denies any acut e joint pains or myalgias. NEURO: Patient denies headache, numbness, tingling. PSYCH: denies any a nxiety or depression. ALLERGIES: No known drug allergies. HOME MEDICATIONS: Lisinopril 20 mg p.o. daily, aspirin 325 mg p.o. daily. PAST MEDICAL HISTORY: Significant for benign essential hypertension, TIA with left facial drooping 3 -5 years ago, history of seizure related to hyponatremia approximately 10 or more years ago, and left macular degeneration. PAST SURGICAL HISTORY: Significant for prostate therapy laser, bilateral cataract extraction with le ns placement, and a right femur fracture status post partial replacement. FAMILY HISTORY: Negative for seizures. Brother with history of CVA, hypertension in multiple family members. Patient does have 2 daughters who are both healthy. SOCIAL HISTORY: Patient is . He lives with his . He quit smoking several years ago. He does not use any illicit drug use. He has a glass of wine daily with meals. CODE STATUS: Full. Patient does not want more than 1-2 days of life support. PHYSICAL EXAM: VITAL SIGNS: Upon arrival to the emergency department, heart rate 64, respiratory ra te 12, blood pressure 155/89, with a pulse ox of 96% on 2 L by nasal cannula. GENERAL: No acute dis tress. Very pleasant, elderly, frail-appearing gentleman, who is lying quietly in bed. HEAD: Normo cephalic, atraumatic. EYES: Extraocular muscles grossly intact. Pupils equal, round, react to ligh t bilaterally and symmetric. Lens reflex is appreciated bilaterally. ENT: No nasal discharge. No sore throat. CV: Regular rate and rhythm in the 60s. Patient with a 2/6 to 3/6 systolic murmur pre sent greatest at the right sternal border. No chest wall tenderness to palpation. RESPIRATORY: Unl abored breathing. Lungs are clear to auscultation bilaterally. No wheezes, rales, or rhonchi. ABDO MEN: Positive bowel sounds. Soft, nontender to palpation. No rebound, guarding, or masses apprecia whit. : No Harvey catheter in place currently. No suprapubic tenderness to palpation. MUSCULOSKEL ETAL: Strength is grossly normal. Patient does have a little bit of a widened gait and possibly sli ght unsteady gait. NEURO: Grossly nonfocal. Patient has a very mild droop on the left with flatten ed nasolabial folds. Exam is otherwise unremarkable with complete neurologic evaluation normal. PSY CH: Patient's thought process, content, and questions are all appropriate at this time. LABORATORY STUDIES: WBC 7.0, H and H 15.5 and 43.1, platelet count 315, MCV 93.9. PTT 13.8, INR is 1.04. Sodium is 129, potassium 4.0, chloride 94, CO2 is 19, anion gap 16, BUN 13, creatinine 0.8. G FR greater than 60. Glucose 106. Calcium is 9.6. Troponin is negative. IMAGING STUDIES: CT head negative for acute abnormalities. Severe chronic supratentorial microvascu lar ischemic changes, progressed since 2011. Moderate generalized cerebral atrophy also progressed. CTA head and neck is negative for any acute finding. There is approximately 50% stenosis left verte bral artery C4-C5 secondary to severe facet hypertrophy and likely increased since prior e xam. Extensive atherosclerosis of the carotid bulbs bilaterally, similar, without significant stenos is. Advanced multilevel degenerative changes of the spine. ASSESSMENT AND PLAN: Pleasant 82-year-old gentleman who presents following an episode of altered men kun status with clenched hands and staring spell. 1. Seizure is most likely related to patient's hyponatremia. Patient does admit that he has been lo ading up on his free water intake since his surgery was completed. Patient reports that he feels lik e he has to flush everything through. Patient will be placed on fluid restriction to approximately 1 500 cc for now. Also will give him a little supplement of normal saline. Have requested patient com plete UA along with urine studies. Patient also could be suffering from a transient ischemic attack or cerebrovascular accident with lower suspicion for this diagnosis. Neurology saw the patient via Ganesh Bettencourt in the emergency department. They also suspect that this is likely seizure activity. EEG wa s ordered with Neurology consult for the morning. Patient's mentation is normal. Patient received K eppra, Ativan, and a liter of normal saline in the emergency department prior to arrival on the floor . 2. Hyponatremia, likely related to polydipsia. Plan as noted above. 3. Benign essential hypertension. Blood pressure is downtrending. Will continue to monitor, p.r.n. hydralazine. 4. Macular degeneration. Supportive care. 5. Hematuria with recent removal of patient's Harvey catheter following GreenLight laser therapy for prostate. This is not unexpected, but will monitor patient's a.m. CBC. 6. Hypochloridemia in setting of patient's hyponatremia. 7. Fluid, electrolytes, and nutrition: IV fluids with fluid restriction. Electrolyte monitoring an d replacement if needed. 8. Cor status full. 9. Patient does not want any prolonged life support, but is amenable to 1-2 days at the most per his request. DISPOSITION: Patient has been admitted to observation status at this time on the Neurology floor pen ding further testing with EEG and Neurology consultation. /[id number]/MODL
[2017-12-07 05:56] LABS: PLATELET COUNT 238 10^3/uL (150-400)
[2017-12-07 08:24] VITALS: O2SAT 96
[2017-12-07] MEDS ORDERED: ENOXAPARIN 40 MG/0.4 ML SYR SC SCH (09:00)
--- NOTE | 2017-12-07 10:27 | CPEKG ---
Heart Rate: 76 RR Interval: 789 P-R Interval: 148 QRSD Interval: 104 QT Interval: 408 QTC Interval: 459 P [place]: -82 QRS [place]: -11 T Wave [place]: 86 EKG Severity - ABNORMAL ECG - EKG Impression: SINUS OR ECTOPIC ATRIAL RHYTHM EKG Impression: SINUS PAUSE/ARREST WITH ATRIAL ESCAPE EKG Impression: PROBABLE LVH WITH SECONDARY REPOL ABNRM Electronically Signed By: Glenn Guillaume 07-Dec-2017 11:49:41
[2017-12-07 11:20] VITALS: BP 149/80; PULSE 59; RESP 16; TEMP 99
[2017-12-07] MEDS: NS 1,000 ML IV SCH (11:21)
--- NOTE | 2017-12-07 12:57 | HOSPPROG ---
Hospitalist Progress Note Assessment/Plan: 82 year admitted with intermittent episodes of abnormal mental status thought to be possible seizure activity versus TIA. CTA head and neck were negative. Telemetry shows sinus rhythm with sinus arrhythmia. Has been followed as an outpatient with serial echos showing mitral regurg and aortic insufficiency. His symptoms have resolved and he feels back to baseline at this time. Difficult to imagine that a sodium of 129 could cause symptoms of seizures. # abnormal neurological symptoms, awaiting MRI and EEG. Neurology to consult later today * Will await recommendations by Neurology * Possible DC later # labile blood pressure as an outpatient, will continue to monitor in-house and continue his medication # mitral regurg and mild aortic insufficiency followed by Dr. Dalton as an outpatient # chronic hyponatremia generally around 130s to 133 # DVT prophylaxis on Lovenox Subjective: Patient new to me and chart reviewed, feels better back to baseline at bedside said he is his usual self. I watched him drink water he had no coughing speech is fluent Objective: Vital Signs Temp Pulse Resp BP Pulse Ox 37.2 C 59 L 16 149/80 H 96 12/07/17 11:17 12/07/17 11:17 12/07/17 11:17 12/07/17 11:17 12/07/17 11:17 Laboratory Results 12/07/17 05:28 12/07/17 05:28 12/06/17 12/07/17 12/08/17 05:59 05:59 05:59 Intake Total 225 Output Total 150 200 Balance -150 25 PT 13.8 SEC (12.0-15.0) 12/06/17 19:22 INR 1.04 (0.83-1.16) 12/06/17 19:22 - Physical Exam Constitutional: no apparent distress Eyes: PERRL, EOMI Ears, Nose, Mouth, Throat: moist mucous membranes, hearing normal Cardiovascular: regular rate and rhythym, systolic murmur Respiratory: no respiratory distress Gastrointestinal: normoactive bowel sounds Genitourinary: no bladder fullness Skin: warm Neurologic: AAOx3 Psychiatric: interacting appropriately, not anxious ICD10 Worksheet Patient Problems: Problems Problem Status Onset Essential hypertension Active Hyperglycemia Active Hyponatremia Active 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
[2017-12-07] MEDS ORDERED: LISINOPRIL 20 MG TAB PO SCH (13:30)
--- NOTE | 2017-12-07 15:04 | ASMTCMCOM ---
CM Note CM Note Notes: Pt in for seizure, is back to baseline. 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 Pt is at bedside. Anticipate pt will d/c when medically stable, no CM d/c needs identified at this time. CM available for changes/needs. Date Signed: 12/07/2017 03:03 PM Electronically Signed By:LIDIA Hughes
--- NOTE | 2017-12-07 17:39 | GCON ---
[f rep st] CONSULTATION NEUROLOGIC CONSULTATION REFERRING PHYSICIAN: Tracy Coelho MD HISTORY OF PRESENT ILLNESS: The patient is an 82-year-old gentleman, whom I am asked to see in neuro logic consultation regarding an episode yesterday of possible seizure activity. He has said that he has had some of these events in the past, and are either visual disturbance or just feeling weird and hard for him to describe. Yesterday, he was at home, and went up to his saying he was not feel ing right, and she said he sat down and then sort of slumped and had his hands flexed a little bit an d was staring blankly for several seconds at a time, and then would interact again. He did not have a generalized convulsion. He did not bite his tongue or have incontinence. He was not experiencing focal numbness or weakness. He had no chest pain, palpitations, or shortness of breath. He has a [facility] medical history of TIA, although this left him with residual left facial droop for about 5 years a go, so it might have been an actual stroke. In the emergency room, he had a stroke alert called mary use he was feeling diaphoretic in the department but [place] was consulted and they suspected that h e probably actually just had seizure activity. Therefore, he had CT and CT angiogram, but no acute f indings were present. No severe stenoses. An MRI showed no acute stroke, but evidence of old ischem ic changes. He is not a smoker or drinker of alcohol. FAMILY HISTORY: Is notable for stroke. PAST MEDICAL HISTORY: The patient also has a past medical history of prostate disease with recent la ser therapy and some essential hypertension, macular degeneration, and some chronic hyponatremia. PHYSICAL EXAMINATION: VITAL SIGNS: Blood pressure is 149/80, pulse of 59, respirations 16, temperat ure 37.2. GENERAL: He is well developed, in no acute distress. EYES: Clear. NECK: Supple, with no bruits or masses. CARDIAC: Regular rate and rhythm. No murmur. NEUROLOGICAL: He is alert and attentive, with clear fluent speech and no cognitive impairment. Pupils 2 mm and reactive. Extraocu lar movements are intact. Normal facial sensation and strength. Palate elevates symmetrically and t ongue protrudes midline. Motor exam reveals normal muscle bulk and tone with 5/5 strength and no sen scott loss. Reflexes are 2+. DIAGNOSTIC STUDIES: I reviewed all of his diagnostic studies as outlined above. The sodium since ho spitalization was 133 when he came in, has been as low as 129, and currently is 131, from this mornin g. Otherwise, unremarkable electrolytes. White count of 5000 now. IMPRESSION: The patient probably did not have transient ischemic attack or acute stroke, but rather complex partial seizure phenomenon, so we are going to put him on Keppra 500 mg b.i.d. with instructi ons to follow up with me in 1 month. Total unit time of: 70 minutes. /[id number]/MODL
--- NOTE | 2017-12-07 23:26 | GDS ---
[f rep st] DISCHARGE SUMMARY DIAGNOSIS: 1. Possible seizure. 2. History of labile hypertension. 3. Mitral regurgitation. 4. Chronic hyponatremia, mild. CONSULTATIONS: Neurology. PROCEDURES DONE: Head and neck CT angiogram, no obstructive lesions. CT of the head, nothing acute. Brain MRI and EEG, results pending. HOSPITAL COURSE: The patient is an 82-year-old man with the above past medical history, who came in with an episode of diminished consciousness where he was not responding to his , although his eye s were open. She called 911. news correspondent came and he was back to normal. In the ER, he had a 2nd episode where he was briefly confused, answering questions incorrectly and was admitted to the hospital for f urther evaluation and treatment. The patient cannot recall the events at all. However, he did have the above evaluation, which did not have a specific diagnosis noted. He was very mildly hyponatremic with a sodium of 129, which started to correct at the time of discharge. I do not think this is octaviano hernan responsible for his symptoms. Neurology saw him. He did have an EEG done with the results pendi ng, and they opted to start him on Keppra short-term at [address] Adame will see h im in followup in 1 month. CONDITION ON DISCHARGE: Good. Vital signs are stable. The patient is alert and oriented with no ne urologic findings. DISCHARGE MEDICATIONS: Please see discharge medication form. New medications include Keppra 500 twi ce daily. FOLLOWUP: He should follow up with Dr. Snyder within 1-2 weeks. Follow up with Dr. Adame in 1 month. /[id number]/MODL
--- NOTE | 2017-12-08 04:01 | CPEEG ---
[f rep st] ELECTROENCEPHALOGRAM EEG REPORT DATE OF STUDY: 12/07/2017 DATE OF INTERPRETATION: 12/07/2017. HISTORY: The patient is an 82-year-old gentleman, who has a history of rare episodes of brief starin g spells, who had a few episodes yesterday. One was witnessed by his initially in which he was complaining of feeling "weird." He then had a few episodes where for several seconds he would stare blankly, and she is not sure if he could respond or not. He would then be able to respond again. He seemed to have a little bit of extension of his trunk and slight flexion posture of the arms and garcia ds. 9-1-1 was called and [facility] came and evaluated him and witnessed an episode that they thou ght also looked consistent with a partial seizure phenomenon. He came to the emergency room and was fully evaluated with extensive workup, including stroke alert and thought to be having seizures, so arabella hernandez was put on IV Keppra load. He has not had any more episodes since coming into the hospital. He nelson d CT and CT angiogram, which showed vascular disease, but no severe stenoses. There was no evidence of acute stroke on CT or brain MRI, but evidence of old ischemic changes. His says he has had a TIA in the past, but she is not aware of a stroke. 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 He denies chest pain, palpitations, or shortness of breath. The symptoms were fairly mild and hard f or him to fully explain. There were no other associated symptoms such as numbness or weakness, but arabella hernandez said vision can be slightly altered when he has these episodes. This is certainly not the very fir st time he has had these events, but they are relatively rare. No other clear-cut exacerbating or al leviating factors for this. REVIEW OF SYSTEMS: A 10-point review of systems is completed and unremarkable except for that noted above. PAST MEDICAL HISTORY: As outlined above. Also history of hypertension, hyponatremia for many years of uncertain cause, he says. He has had prostate laser therapy recently and cataract extraction, fem ur fracture with treatment. FAMILY HISTORY: Negative for seizure. Brother with a history of stroke. INDICATION: Evaluate for seizure and encephalopathy and focal findings. DESCRIPTION OF THE RECORD: This is a technically adequate study obtained following partial sleep dep rivation with background showing 8 Hz posterior predominant symmetric alpha rhythm, which attenuates on eye opening. There are no epileptiform discharges or focal findings. INTERPRETATION: This is a normal awake EEG recording. /[id number]/MODL
[2017-12-08] MEDS ORDERED: ASPIRIN 325 MG TAB PO SCH (09:00)
== END 2017-12-07 17:01 | disposition home or self-care (01) ==
LOC: EDUNIT# → F3N 21:08
PROVIDERS: ADMIT Internal Medicine; ATTEND Internal Medicine
PROC: 4A10X4Z Monitoring of Central Nervous Electrical Activity, External Approach (ICD-10-PCS; principal; 2017-12-06)
DX: R56.9 Unspecified convulsions (principal); E87.1 Hypo-osmolality and hyponatremia; E87.8 Other disorders of electrolyte and fluid balance, not elsewhere classified; I10 Essential (primary) hypertension; E86.9 Volume depletion, unspecified; R29.700 NIHSS score 0; I69.392 Facial weakness following cerebral infarction; I34.0 Nonrheumatic mitral (valve) insufficiency; N40.1 Benign prostatic hyperplasia with lower urinary tract symptoms; I65.02 Occlusion and stenosis of left vertebral artery; I67.82 Cerebral ischemia; H35.30 Unspecified macular degeneration; Z79.83 Long term (current) use of bisphosphonates; Z87.891 Personal history of nicotine dependence
CPT/HCPCS: 70450; 70496; 70498; 70551; 92610; 93005; 95816; G0378; G8996; G8997; G8998; J1650; J1953; J2060; Q9967; 82947-QW; 96365

== ENCOUNTER → 2018-05-02 | Outpatient (CLI) | payer OTHER | LOC: BHFA 10:45 | PROVIDERS: ATTEND Internal Medicine | DX: I48.91 Unspecified atrial fibrillation (principal) ==

== ENCOUNTER → 2018-08-15 | Outpatient (CLI) | payer OTHER | LOC: BHFA 09:15 | PROVIDERS: ATTEND Internal Medicine Cardiovascular Disease | DX: I34.0 Nonrheumatic mitral (valve) insufficiency (principal) ==

== ENCOUNTER → 2018-11-29 | Outpatient (CLI) | payer OTHER | LOC: BHFA 15:15 | PROVIDERS: ATTEND Internal Medicine Cardiovascular Disease | DX: I48.91 Unspecified atrial fibrillation (principal) ==

== ENCOUNTER → 2018-12-07 | Outpatient (CLI) | payer OTHER | LOC: BHFA 09:30 | PROVIDERS: ATTEND Internal Medicine Cardiovascular Disease | DX: I48.91 Unspecified atrial fibrillation (principal) | CPT/HCPCS: 78452; 93017; A9500; J2785 ==

== ENCOUNTER → 2018-12-13 | Outpatient (CLI) | payer OTHER | LOC: FCPNEURO 20:00 | PROVIDERS: ATTEND Student in an Organized Health Care Education/Training Program | DX: G47.33 Obstructive sleep apnea (adult) (pediatric) (principal); G47.31 Primary central sleep apnea ==

== ENCOUNTER 2018-12-27 07:38 | Day surgery (SDC) | payer OTHER | END 2018-12-27 10:35 | disposition home or self-care (01) | LOC: FCATH 07:38 ==

== ENCOUNTER → 2019-01-15 | Outpatient (CLI) | payer OTHER | LOC: FCPNEURO 21:00 | PROVIDERS: ATTEND Student in an Organized Health Care Education/Training Program | DX: G47.31 Primary central sleep apnea (principal); G47.33 Obstructive sleep apnea (adult) (pediatric); G47.61 Periodic limb movement disorder ==

== ENCOUNTER → 2019-02-15 | Outpatient (CLI) | payer OTHER | LOC: BHFA 08:30 | PROVIDERS: ATTEND Internal Medicine Cardiovascular Disease | DX: I25.10 Atherosclerotic heart disease of native coronary artery without angina pectoris (principal) ==